=== PATIENT | male | born 1965 | race Caucasian/White ===

== ENCOUNTER → 2017-02-23 | Day surgery (SDC) | payer OTHER ==
[~2017-02-23] MED LIST: IBUPROFEN400 MG PO; NORTRIPTYLINE H50 MG PO
--- NOTE | ~2017-02-23 | EKG ---
PATIENT: CHAVEZ ARAUZ UNIT #: [id number] Ventricular Rate: 105 BPM Atrial Rate: 105 BPM P-R Interval: 150 ms QRS Duration: 90 ms Q-T Interval: 340 ms QTC Calculation(Bezet): 449 ms P [place]: 57 degrees Calculated R [place]: 39 degrees Calculated T [place]: 27 degrees Diagnosis Line: Sinus tachycardia Baseline wander Diagnosis Line: Otherwise normal ECG Diagnosis Line: No previous ECGs available Diagnosis Line: Confirmed by GILBERT HEATH MD ([id number]) on 02/23/2017 Diagnosis Line: 10:05:49 AM INTERPRETING MD: IVANA KNIGHT
--- NOTE | ~2017-02-23 | OR ---
Unit #: [id number] #: [id number] Patient: CHAVEZ MALDONADO [id number] [address] [address] [id number] O MR#: [id number] NAME: CHAVEZ MALDONADO ROOM: Date of Procedure: 02/23/2017 Admission Date: 02/23/2017 Surgeon: Tiago Alan M.D. : 1965 Attending Physician: Tiago Alan M.D. Primary Care Physician: Generic Doctor Not In System OPERATIVE REPORT PREOPERATIVE DIAGNOSES 1. Incomplete bladder emptying. 2. Chronic prostatitis. POSTOPERATIVE DIAGNOSES 1. Incomplete bladder emptying. 2. Chronic prostatitis. PROCEDURE PERFORMED Cystoscopy. ANESTHESIA General. INDICATIONS FOR PROCEDURE Mr. Maldonado is a pleasant 51-year-old gentleman with chronic dysuria and chronic prostatitis. This has been refractory to multiple medications. The risks, benefits, and alternatives including bleeding, infection, damage to adjacent structures, need for further surgery, as well as risk of anesthesia were explained to the patient. Informed consent obtained. He wished to proceed. FINDINGS Normal cystoscopy. DESCRIPTION OF PROCEDURE The patient was taken to the operative suite and properly identified. After the application of satisfactory general anesthetic, the patient was placed in dorsal lithotomy position. Genitalia were prepped and draped in usual sterile fashion. I introduced a rigid 22-Amharic cystoscope. The entire urethra was normal. There were no strictures. The prostate was nonobstructing. The bladder had no tumors, stones, or masses. Bladder was emptied. The scope was removed. The Uro-jet was passed. The patient tolerated the procedure well without complications. PLAN He has a completely nonobstructing prostate and an anatomically normal lower urinary tract. We will try and treat him symptomatically with Pyridium. Dictated by... Unit #: [id number] #: [id number] Patient: CHAVEZ MALDONADO Belkys Ray/darriusl TD: 02/23/2017 23:51 JOB #: [id number] OPERATIVE REPORT Page 1 of 1 X Tiago Alan MD X PROCEDURE OPERATIVE NOTE
== END | disposition home or self-care (01) ==
LOC: CSUR 08:57
DX: N41.1 Chronic prostatitis (principal); R33.9 Retention of urine, unspecified; F32.9 Major depressive disorder, single episode, unspecified; I10 Essential (primary) hypertension; G47.30 Sleep apnea, unspecified; M19.90 Unspecified osteoarthritis, unspecified site; Z87.891 Personal history of nicotine dependence; Z79.1 Long term (current) use of non-steroidal anti-inflammatories (NSAID); Z79.899 Other long term (current) drug therapy
CPT/HCPCS: 93005; J0690; J2250; J3010